=== PATIENT | female | born 1985 | race Hispanic/Latino ===

== ENCOUNTER 2021-04-17 16:53 | Emergency (ER) | payer OTHER ==
[~2021-04-17] VITALS: Ht 157.5 cm; Wt 64.9 kg
[2021-04-17] MEDS ORDERED: ONDANSETRON HCL 4 MG ORAL DISINTEGRATING TAB PO ONE (18:30)
[2021-04-17] MEDS ORDERED: ONDANSETRON HCL 4 MG ORAL DISINTEGRATING TAB ONE (18:43)
[2021-04-17] MEDS ORDERED: TESSALON PERLE100 MG PO (19:24)
[2021-04-17] MEDS ORDERED: ONDANSETRON ODT4 MG PO (19:24)
== END 2021-04-17 20:11 | disposition home or self-care (01) ==
LOC: FSED 17:05
DX: R05 Cough (principal); B34.9 Viral infection, unspecified
CPT/HCPCS: 71045; 83518; 87400; 99283; Q0162